=== PATIENT | female | born 1990 | race Asian ===

== ENCOUNTER → 2019-11-04 | Outpatient (CLI) | payer OTHER ==
[~2019-11-04] MED LIST: ABAC300; AMOCLA500 PO; AMOX250 PO; CITA20 PO; FLUT.05NI; HYDACE5 PO; IBUP200; IBUP800 PO; OXYACE5T PO; RANI150 PO; RXOXYACE PO; SUMA25 PO
== END ==
LOC: LAB UCHC 13:40 → LAB SHORT 13:40
DX: N92.0 Excessive and frequent menstruation with regular cycle (principal)
CPT/HCPCS: 87070; 87205

== ENCOUNTER → 2020-05-21 | Outpatient (CLI) | payer BC, OTHER ==
[2020-05-22 15:05] LABS: Candida species (DNA Probe) Negative (NEGATIVE); G. vaginalis (DNA Probe) Positive (NEGATIVE); T. vaginalis (DNA Probe) Negative (NEGATIVE)
== END | disposition home or self-care (01) ==
LOC: LAB 19:46 → LAB SHORT 19:46
PROVIDERS: Physician Assistant
DX: N72 Inflammatory disease of cervix uteri (principal)
CPT/HCPCS: 87480; 87510; 87529; 87660